=== PATIENT | male | born 1990 | race Caucasian/White ===

== ENCOUNTER 2016-05-01 03:06 | Emergency (ER) | payer OTHER ==
[~2016-05-01] VITALS: Ht 165.1 cm; Wt 65.0 kg
[2016-05-01 03:13] VITALS: Ht 165.1 cm; Wt 65.0 kg
[2016-05-01] MEDS ORDERED: HYDROCODONE/APAP (10/325) TAB PO ONE (04:00)
[2016-05-01] MEDS ORDERED: AMOXICILLIN/CLAV 875 MG TAB PO ONE (04:00)
[2016-05-01] MEDS ORDERED: BACITRACIN 0.9 GM OINT TOP ONE (04:00)
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
[2016-05-01] MEDS ORDERED: AMOX1TAB10 PO (05:30)
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
[2016-05-01] MEDS ORDERED: HYDR-906 PO (05:31)
[2016-05-01] MEDS ORDERED: IBUP-1542 PO (05:32)
== END 2016-05-01 05:39 | disposition home or self-care (01) ==
LOC: FTE 03:06
DX: S51.051A Open bite, right elbow, initial encounter (principal); S51.031A Puncture wound without foreign body of right elbow, initial encounter; S50.311A Abrasion of right elbow, initial encounter; W54.0XXA Bitten by dog, initial encounter; Y92.9 Unspecified place or not applicable
CPT/HCPCS: 73080; Z7502; Z7610

== ENCOUNTER 2016-05-10 22:55 | Emergency (ER) | payer OTHER ==
[~2016-05-10] VITALS: Ht 162.6 cm; Wt 66.5 kg
[~2016-05-10 22:55] MED LIST: AMOX1TAB10 PO; HYDR-906 PO; IBUP-1542 PO
[2016-05-10 22:59] VITALS: Ht 162.6 cm; Wt 66.5 kg
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
[2016-05-11] MEDS ORDERED: KETOROLAC 60 MG INJ IM STA (01:38)
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
[2016-05-11] MEDS ORDERED: AMOX1TAB10 PO (01:53)
[2016-05-11] MEDS ORDERED: HYDR-906 PO (01:53)
[2016-05-11] MEDS ORDERED: IBUP-1542 PO (01:53)
[2016-05-11 02:25] VITALS: BP 120/65; PULSE 93; RESP 20; TEMP 97.5
== END 2016-05-11 02:30 | disposition home or self-care (01) ==
LOC: FTE 22:55
DX: S00.83XA Contusion of other part of head, initial encounter (principal); S02.2XXA Fracture of nasal bones, initial encounter for closed fracture; S20.211A Contusion of right front wall of thorax, initial encounter; S20.212A Contusion of left front wall of thorax, initial encounter; S09.8XXA Other specified injuries of head, initial encounter; F17.210 Nicotine dependence, cigarettes, uncomplicated; S41.151D Open bite of right upper arm, subsequent encounter; W54.0XXD Bitten by dog, subsequent encounter; Y04.2XXA Assault by strike against or bumped into by another person, initial encounter
CPT/HCPCS: 70450; 70486; 71010; 71110; 96372; J1885; Z7502

== ENCOUNTER 2016-09-04 23:30 | Emergency (ER) | payer OTHER ==
[~2016-09-04] VITALS: Ht 167.6 cm; Wt 60.0 kg
[2016-09-04 23:55] VITALS: Ht 167.6 cm; Wt 60.0 kg
--- NOTE | 2016-09-05 01:59 | ERD ---
ER Documentation Chief Complaint Date/Time DATE: 09/05/16 TIME: 01:39 Chief Complaint tripped while chasing his dog, c/o right facial swelling/pain HPI 26-year-old male who presents emergency department for facial pain/head injury. Stated that he was chasing his dog when he tripped and fell landed in his face then in the back of his head. Denies changes in vision, blurry vision, pain on eye movement, changes in vision , neck pain, shoulder pain, nasal discharge, nasal bleeding, ear pain, ear discharge, ear bleeding, ringing of the ear, chest pain, back pain, abdominal pain, nausea, vomiting, projectile vomiting, constipation, diarrhea, changes in bowel and bladder habits, bowel and bladder incontinence, recent travel, recent exposure to any illness, recent antibiotic use the last 3 months, numbness or tingling sensation, fever, chills. No known drug allergies. No past medical history. No surgical history. Does not take any prescription medication at home. Social history: Works loading and unloading on trucks. Smokes about 4 sticks of cigarettes a day. Denies use of alcohol, use of illegal drugs. ROS All systems reviewed and are negative except as per history of present illness. Medications Home Meds Active Scripts Amoxicillin/Potassium Clav (Amox-Clav 875-125 mg Tablet) 875-125 mg Tab, 1 TAB PO BID for 7 Days, #14 TAB Prov:DINAH BARRETTAR F 09/05/16 Hydrocodone/Acetaminophen ([place] 5-325 Tablet) 1 Each Tablet, 1 TAB PO Q6H Y for PAIN, #15 TAB Prov:DINAH BARRETTAR F 09/05/16 Amoxicillin/Potassium Clav (Amox-Clav 875-125 mg Tablet) 875-125 mg Tab, 1 TAB PO BID for 7 Days, #14 TAB Prov:DORYS DIXON NP 05/11/16 Hydrocodone/Acetaminophen ([place] 5-325 Tablet) 1 Each Tablet, 1 TAB PO Q6H Y for SEVERE PAIN LEVEL 7-10, #7 TAB Prov:DORYS DIXON NP 05/11/16 Ibuprofen* (Motrin*) 600 Mg Tab, 600 MG PO Q6H Y for PAIN AND OR ELEVATED TEMP, #30 TAB Prov:DORYS DIXON [employer] 05/11/16 Ibuprofen* (Motrin*) 600 Mg Tab, 600 MG PO Q6, #30 TAB Prov:MAG REECE TESSYStephanyTiff 05/01/16 Hydrocodone/Acetaminophen ([place] 5-325 Tablet) 1 Each Tablet, 1 EACH PO Q6, #8 TAB Prov:MAG REECE TESSYStephanyTiff 05/01/16 Amoxicillin/Potassium Clav (Amox-Clav 875-125 mg Tablet) 875-125 mg Tab, 1 TAB PO BID for 7 Days, #10 TAB Prov:MAG REECE PA-C 05/01/16 Allergies Allergies: Coded Allergies: No Known Allergy (Unverified , 09/04/16) PMhx/Soc History of Surgery: No Anesthesia Reaction: No Hx Neurological Disorder: No Hx Respiratory Disorders: No Hx Cardiac Disorders: No Hx Psychiatric Problems: Yes ("ANXIETY BUT NOT ANYMORE") Hx Miscellaneous Medical Probl: No Hx Alcohol Use: No Hx Substance Use: Yes ([facility]) Hx Tobacco Use: Yes Physical Exam Vitals Vital Signs Date Time Temp Pulse Resp B/P Pulse Ox O2 Delivery O2 Flow Rate FiO2 09/04/16 23:55 98.4 115 20 119/69 98 Physical Exam CONSTITUTIONAL: Well-nourished; in no apparent distress. HEAD: Normocephalic; atraumatic. EYES: Right eye: Periorbital edema and bruising. Conjunctiva clear, sclera non- icteric, EOM intact. No pain on eye movement. PERRLA. Left eye: Conjunctiva clear, sclera non-icteric, EOM intact. PERRLA. Ears: Hearing intact. EACs clear, TMs non-bulging, non-inflamed, translucent & mobile, ossicles normal appearance, No obstructions, no erythema, no discharges Nose: No obstructions. No polyps. No external lesions. Mucosa non-inflamed. No external lesions, septum and turbinates normal. No rhinorrhea. No discharges. Frontal sinus is non-tender to palpation. Maxillary sinus is tender to palpation. Right nasal area has dried blood. No signs of septal hematoma. Patent airway bilaterally. MOUTH: Moist mucous membranes, no lesion, no obstructions, no vesicles, no thrush, patent airway. No signs of teeth/tooth avulsion. No bleeding. Tolerating secretions. No difficulty swallowing. Patent airway. Throat: Uvula in midline. Right tonsil is +1 with no erythema, no exudate. Left tonsil is +1 with no erythema, no exudate. Tolerating secretions well. Good gag reflex. Patent airway. Neck: Supple, without lesions, bruits, or adenopathy. No mass. Thyroid non- enlarged and non-tender to palpation. CHEST: Symmetrical chest. Respirations even and not labored. No retractions noted. CARDIOVASCULAR: Normal S1, S2. RRR. No murmurs, gallops. RESPIRATORY: Normal chest excursion with respiration; breath sounds clear and equal bilaterally; no wheezes, rhonchi, or rales. Breathing even and unlabored. Speaking in clear, full, and complete sentences w/ ease. ABDOMEN: Normal bowel sounds normal. Soft, round, non-distended, non-guarding, no tenderness, no rebound, no organomegaly, no masses, no pulsating abdominal mass. No hernia. No peritoneal signs. : No CVA tenderness. BACK: Symmetrical shoulder. Spine is midline without deformity, tenderness. No evidence of trauma or deformity. PELVIS: Stable pelvis. No evidence of trauma or deformity. MUSCULOSKELETAL: Normal gait and station. No misalignment, asymmetry, crepitation, defects, tenderness, masses, effusions, decreased range of motion, instability, atrophy or abnormal strength or tone in the head, neck, spine, ribs , pelvis or extremities. No calf tenderness. NEUROVASCULAR: Distal pulses are present. Pedal pulse are present, equal, and normal. Capillary refills are < 2 seconds. NEUROLOGIC: Alert and oriented x4. Speaks full and clear sentences. Cranial Nerves II-XII normal. Sensation to pain, touch, and proprioception normal. Grossly unremarkable. No neurologic deficits. Romberg test is negative. PSYCHOLOGICAL: The patients mood and manner are appropriate. No hallucinations , delusions. Not SI. Not HI. Has the capacity to decide for self SKIN: Normal for age and ethnicity; warm; dry; good turgor; no apparent lesions or exudates. No rashes, hives, discoloration. Right cheekbone has superficial laceration measuring 0.2 cm. bilateral elbow has mild abrasion. No active bleeding. Results 24 hrs Current Medications Medications (Trade) Dose Ordered Sig/Kip Route PRN Reason Start Time Stop Time Status Last Admin Dose Admin Diphtheria/ Tetanus/Acell Pertussis (Adacel) 0.5 ml ONCE ONCE IM* 09/05/16 02:00 09/05/16 02:27 DC Procedures/MDM Examination: Please see physical examination. Disease process, medical treatment was explained to the patient and family member. They verbalized understanding and agreed with the diagnostic tests, medical treatment, and follow-up care. Radiology: CT of the head Impression: No acute findings. CT of the face Impression: Right-sided zygomaticofacial complex fracture. Case was discussed with supervising emergency room physician, Dr. Db Spaulding who suggested to discharge the patient and have his PCP to refer him to a maxillofacial surgeon. Treatment: None. Re-evaluation: Denies headache, pain on eye movement, dizziness, blurred vision , throat pain, neck stiffness, shoulder pain, chest pain, abdominal pain, back pain, nausea, vomiting. No episode of emesis in the emergency department. Cranial nerves II through XII are intact. No neurovascular deficits. Consultation: None. Differential diagnosis: Orbital fracture versus nasal fracture versus subdural hematoma versus concussion Medical decision makin-year-old male who presents emergency department for facial pain/head injury. Stated that he was chasing his dog when he tripped and fell landed in his face then in the back of his head. Patient's complaint, patient's history of his complaint, my physical findings, diagnostic test results, my reevaluation are consistent with my final diagnosis of right-sided zygomaticofacial complex fracture, head injury. Medications prescribed are the following: [place]. Augmentin. Patient and family member are made aware of the side effects and adverse reactions of the medications prescribed. Instructed on when to seek emergent and medical attention in case allergic/anaphylactic reactions or severe side effects and or adverse reactions to medications. Patient and family member verbalized understanding. Patient instructed Instructed to follow-up with his PCP in 24-48 hours. PCP to refer patient to a maxillofacial surgeon. Instructed to Call 911 for chest pain, shortness of breath. Advised to come back here in ED as soon as possible for severity of symptoms which includes but not limited to: any new symptoms; shortness of breath/difficulty of breathing; cardiovascular changes; severe gastrointestinal symptoms; signs and symptoms of bleeding and or infection; signs of compartment syndrome/neurovascular changes; neurological changes/deficits. Patient and family member verbalized understanding. Upon discharge, patient is alert and oriented x 4, speaks full and clear sentences, denies pain, has no neurological deficits, has no neurovascular deficits, difficulty of breathing. Breathing even and unlabored. Lung sounds are clear to auscultation. Not in distress. Appears comfortable. Ambulatory with steady gait. Appears satisfied with care provided here in ED. Departure Diagnosis: Primary Impression: Fall with significant injury Additional Impression: Fracture, zygomatic Condition: Stable Additional Instructions: Patient instructed Instructed to follow-up with his PCP in 24-48 hours. PCP to refer patient to a maxillofacial surgeon. Instructed to Call 911 for chest pain, shortness of breath. Advised to come back here in ED as soon as possible for severity of symptoms which includes but not limited to: any new symptoms; shortness of breath/difficulty of breathing; cardiovascular changes; severe gastrointestinal symptoms; signs and symptoms of bleeding and or infection; signs of compartment syndrome/neurovascular changes; neurological changes/deficits. Patient and family member verbalized understanding. JOLENE BARRETT September 05, 2016 01:59
[2016-09-05] MEDS ORDERED: DIPHTH/TET/ACEL PERTUSS (ADULT) 0.5 ML VIAL IM* ONE (02:00)
--- NOTE | 2016-09-05 02:39 | RADRPT ---
PROCEDURE: Noncontrast CT Head. CLINICAL INDICATION: Pain. TECHNIQUE: Noncontrast CT of the head was obtained. The administered radiation dose was CTDI vol = 45 mGy, DLP = 720 mGy-cm. COMPARISON: No pertinent prior examinations were submitted for comparison. FINDINGS: The ventricles and sulci are within normal limits. There is no acute intracranial hemorrhage or ext ra-axial fluid collection. There is no mass effect. No midline shift is identified. There is no loss of bales-white differentiation to suggest acute infarction. The calvarium and skull base are grossly intact. Please refer to the CT scan of the facial bones. IMPRESSION: No acute findings. RPTAT: HIKT .Antelmo Mccollum MD, MD Date Time Electronically viewed and signed by .Antelmo Mccollum MD, on 09/05/2016 02:38 .T/
--- NOTE | 2016-09-05 02:45 | RADRPT ---
PROCEDURE: Noncontrast CT facial bones. CLINICAL INDICATION: Trauma. TECHNIQUE: Noncontrast CT of the facial bones was obtained. Coronal and sagittal re-formations were provided. The administered radiation dose was CTDI vol = 29 mGy, DLP = 533 mGy-cm. COMPARISON: No pertinent prior examinations were submitted for comparison. FINDINGS: There are acute fractures within the right zygomatic arch, lateral orbital wall, orbital floor and r ight maxillary sinus. There is some minimal displacement of the fragments within the orbital floor. The fracture extends to the informal canal. A small amount of gas is noted within the lateral asp ect of the right post septal orbit. Fractures of the maxillary sinus involve the anterior and posterolateral tavarez of the sinus. There is moderate displacement of the fragments. Some hemorrhage is noted within the right maxillary sinu s. Subcutaneous emphysema is noted within the right premaxillary face and periorbital regions. The globes are intact. The bony orbits are without worrisome osseous lesion. The extraocular muscl es and optic nerve complexes are normal in caliber. No intraorbital hematoma or inflammatory change s are present. IMPRESSION: Right-sided zygomaticofacial complex fracture. RPTAT: HIKT .Antelmo Mccollum MD, MD Date Time Electronically viewed and signed by .Antelmo Mccollum MD, MD on 09/05/2016 02:45 .T/
[2016-09-05] MEDS ORDERED: AMOX1TAB10 PO (03:18)
[2016-09-05] MEDS ORDERED: HYDR-906 PO (03:18)
== END 2016-09-05 03:54 | disposition home or self-care (01) ==
LOC: FTE 23:30
DX: S02.40EA Zygomatic fracture, right side, initial encounter for closed fracture (principal); F17.210 Nicotine dependence, cigarettes, uncomplicated; R51 Headache; W01.10XA Fall on same level from slipping, tripping and stumbling with subsequent striking against unspecified object, initial encounter; Y92.9 Unspecified place or not applicable
CPT/HCPCS: 70450; 70486; Z7502

== ENCOUNTER 2016-10-01 23:38 | Emergency (ER) | payer OTHER ==
[~2016-10-01] VITALS: Ht 167.6 cm; Wt 64.0 kg
[2016-10-01 23:51] VITALS: Ht 167.6 cm; Wt 64.0 kg
[2016-10-02] MEDS ORDERED: KETOROLAC 15 MG INJ IM STA (02:44)
[2016-10-02] MEDS ORDERED: DIAZEPAM 5 MG TAB PO ONE (03:00)
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
[2016-10-02] MEDS ORDERED: TRAM50TA2 PO (03:59)
[2016-10-02] MEDS ORDERED: DIAZ-90 PO (04:00)
== END 2016-10-02 04:15 | disposition home or self-care (01) ==
LOC: FTE 23:38
DX: R68.84 Jaw pain (principal); F43.12 Post-traumatic stress disorder, chronic; F17.210 Nicotine dependence, cigarettes, uncomplicated
CPT/HCPCS: J1885; Z7610; 96372